=== PATIENT | male | born 1940 | race Caucasian/White ===

== ENCOUNTER 2018-12-14 08:06 | Day surgery (SDC) | payer MEDICARE, OTHER ==
[2018-12-14] MEDS: SOD CHLORIDE 0.9% 500 ML (09:37)
[2018-12-14] MEDS: LIDOCAINE 1%/EPI (1:100,000) (MDV) 20 ML (09:38)
[2018-12-14] MEDS: SOD CHLORIDE 0.9% 1,000 ML IV (09:40)
[2018-12-14] MEDS: IODIXANOL LOCM 100 ML BTL (10:30)
[2018-12-14] MEDS: FENTAnyl 50 MCG/ML VIAL (10:45)
[2018-12-14] MEDS: LIDOCAINE 1% (MDV) 20 ML INJ (10:46)
[2018-12-14] MEDS: GELATIN 12MM X 7 MM SPONGE (10:56)
== END 2018-12-14 15:30 | disposition home or self-care (01) ==
LOC: SDS 08:06
DX: C22.0 Liver cell carcinoma (principal)
CPT/HCPCS: 47000; 77012; 82962; 88307; 88313